=== PATIENT | female | born 1995 | race Caucasian/White ===

== ENCOUNTER 2016-05-15 18:56 | Emergency (ER) | payer MEDICAID ==
[2016-05-15 19:19] VITALS: BP 116/82
--- NOTE | 2016-05-15 19:39 | UCPHY ---
H & P Patient Type: New Chief Complaint Nursing Narrative: c/o dysuria X1 wk - STD exsposure 1wk ago - wants testing HPI/ROS: HPI CHIEF COMPLAINT: Dysuria, STI exposure HISTORY OF PRESENT ILLNESS: This patient very pleasant 21-year-old female presents urgent care stating that for 1 week she has had dysuria and had STI exposure would like STI testing. Patient tells me she would like to be treated for STI. She does not want a pelvic exam. She denies any abdominal pain fever flank pain vaginal discharge. She thinks she may have been exposed to chlamydia week ago unprotected sex. Past Medical History: No medical history Past Surgical History: No surgical history Social History: Denies daily use of drugs alcohol tobacco products Family History: Noncontributory ROS REVIEW OF SYSTEMS: A comprehensive 10 point review of systems is otherwise negative aside from elements mentioned in the history of present illness. Exam Constitutional triage nursing summary reviewed, vital signs reviewed, awake/ alert. Eyes normal conjunctivae and sclera, EOMI, PERRLA. HENT normal inspection, atraumatic, moist mucus membranes, no epistaxis, neck supple/ no meningismus, no raccoon eyes. Respiratory clear to auscultation bilaterally, normal breath sounds, no respiratory distress, no wheezing. Cardiovascular rate normal, regular rhythm, no murmur, no edema, distal pulses normal. Gastrointestinal soft, non-tender, no rebound, no guarding, normal bowel sounds, no distension, no pulsatile mass. Genitourinary no CVA tenderness. Musculoskeletal no midline vertebral tenderness, full range of motion, no calf swelling, no tenderness of extremities, no meningismus, good pulses, neurovascularly intact. Skin pink, warm, & dry, no rash, skin atraumatic. Neurologic awake, alert and oriented x 3, AAOx3, moves all 4 extremities equally, motor intact, sensory intact, CN II-XII intact, normal cerebellar, normal vision, normal speech. Psychiatric normal mood/affect. Heme/Lymph/Immune no lymphadenopathy. Differential Diagnosis: includes but is not limited to in a particular order, UTI, cystitis, gonorrhea, chlamydia STI exposure Medical Decision Making: plan for this patient is 250 mg IM Rocephin, 1000 mg p.o. Azithromycin, this is impaired treatment for gonorrhea and Chlamydia. Urine dirty catch be run urinalysis will be run.She understands to call in 24 hours for chlamydia and gonorrhea results. Source: Patient - Personal History LMP (Females 10-55): Now Current Tetanus Diphtheria and Acellular Pertussis (TDAP): Yes - Medical/Surgical History Other PMH: denies - Family History Significant Family History: No pertinent family hx Constitutional: Initial Vital Signs Temperature (C) 36.6 C 05/15/16 19:16 Heart Rate 95 05/15/16 19:16 Respiratory Rate 18 05/15/16 19:16 Blood Pressure 116/82 H 05/15/16 19:16 O2 Sat (%) 99 05/15/16 19:16 Allergies/Adverse Reactions: No Known Allergies Allergy (Unverified 05/15/16 19:16) Home Medications: Medication Instructions Recorded NK [No Known Home Meds] 05/15/16 Medical Decision Making - Data Points Laboratory Results: 05/15/16 05/15/16 19:45 19:45 Urine Color Pending Urine Appearance Pending Urine pH Pending Ur Specific [place] Pending Urine Protein Pending Urine Ketones Pending Urine Blood Pending Urine Nitrate Pending Urine Bilirubin Pending Urine Urobilinogen Pending Ur Leukocyte Esterase Pending Ur Culture Indicated? Pending Urine Glucose Pending N.gonorrhoeae RNA (TMA) Pending Departure - Departure Disposition: Home, Routine, Self-Care Condition: Good Instructions: Chlamydia (ED), Gonorrhea (ED) Additional Instructions: 1.You have been empirically treated for gonorrhea and chlamydia. 2. please call in 24 hours to see the results of your testing. 3.Return to the urgent care or emergency room if you have any worsening symptoms questions or concerns. Referrals: NONE *PRIMARY CARE P,. [Primary Care Provider] - As per Instructions - PQRS PQRS Measurement: n/a
[2016-05-15] MEDS ORDERED: cefTRIAXone 250 MG VIAL IM ONE (19:46)
[2016-05-15] MEDS ORDERED: AZITHROMYCIN 250 MG TAB PO ONE (19:46)
[2016-05-15 19:48] LABS: COLOR YELLOW; LEUKOCYTE ESTERASE,URINE NEGATIVE (NEGATIVE); NITRITE,URINE NEGATIVE (NEGATIVE)
[2016-05-15 20:46] LABS: MUCUS 1+ /lpf (NONE-1+)
[2016-05-15 21:20] VITALS: PULSE 87; RESP 20; TEMP 98.4; O2SAT 95
== END 2016-05-15 21:05 | disposition home or self-care (01) ==
LOC: CED 18:56
DX: R30.0 Dysuria (principal)
CPT/HCPCS: 81003-PO; 81015-PO; 96372-PO; 99214-PO; G0463-PO; J0696

== ENCOUNTER 2018-05-19 15:52 | Emergency (ER) | payer MEDICAID ==
[2018-05-19] MEDS ORDERED: KETOROLAC 30 MG/1 ML SDV IVP ONE (16:59)
[2018-05-19] MEDS ORDERED: NS 1,000 ML IV ONE (16:59)
--- NOTE | 2018-05-19 16:59 | EDPHY ---
H & P Stated Complaint: low back pain and prolonged period Time Seen by Provider: 05/19/18 16:50 HPI/ROS: HPI: This is a 23-year-old female who presents with Chief Complaint: low back pain and prolonged period Location: Low back, pelvic Quality: Pain, prolonged. Duration: 2 weeks Signs and Symptoms: no fever, no nausea, no vomiting, no hematemesis, no blood in stool, no abdominal bloating, no diarrhea, no back pain, no urinary symptoms , no vaginal discharge, no indigestion, no chest pain, no shortness of breath Timing: Acute Severity: Moderate Context: Patient is a student at [employer], originally from [place], reports that she does not take control pills, has menses every 28 days, reports 2 week history of heavy flow and prolonged menses that is abnormal for her. She reports that she has been changing her regular flow tampon every 1 hr for the last 2 days. She also complains of low back pain but denies dysuria, urinary frequency, vaginal bleeding. No recent sexual intercourse. Denies concern for sexually transmitted infections. Eating and drinking without difficulty. Modifying Factors: None Comment: ROS: A comprehensive 10 system review of systems is otherwise negative aside from elements mentioned in the history of present illness. MEDICAL/SURGICAL/SOCIAL HISTORY: Medical history: Generally healthy. Does not take any control. Surgical history: Denies Social history: Originally from [place]. Nonsmoker. Family history noncontributory. CONSTITUTIONAL: Well-developed and well-nourished young adult white female, awake and alert, no obvious distress HEENT: Atraumatic and normocephalic, PERRL, EOMI. Nares patent; no rhinorrhea; no nasal mucosal edema. Tympanic membranes clear. Oropharynx clear, no exudate and moist pink mucosa. Airway patent. No lymphadenopathy. No meningismus. Cardiovascular: Normal S1/S2, regular rate, regular rhythm, without murmur rub or gallop. PULMONARY/CHEST: Symmetrical and nontender. Clear to auscultation bilaterally. Good air movement. No accessory muscle usage. ABDOMEN: Soft, nondistended, nontender, no rebound, no guarding, no peritoneal signs, no masses or organomegaly. No CVAT. EXTREMITIES: 2/2 pulses, strength 5/5, no deformities, no clubbing, no cyanosis or edema. NEUROLOGICAL: no focal neuro deficits. GCS 15. SKIN: Warm and dry, no erythema. no rash. Good capillary refill. Source: Patient Exam Limitations: No limitations - Personal History LMP (Females 10-55): Now Current Tetanus/Diphtheria Vaccine: Yes Current Tetanus Diphtheria and Acellular Pertussis (TDAP): Yes - Medical/Surgical History Hx Asthma: No Hx Chronic Respiratory Disease: No Hx Diabetes: No Hx Cardiac Disease: No Hx Renal Disease: No Hx Cirrhosis: No Hx Alcoholism: No Hx HIV/AIDS: No Hx Splenectomy or Spleen Trauma: No Other PMH: denies - Social History Smoking Status: Never smoked Constitutional: Initial Vital Signs Temperature (C) 36.8 C 05/19/18 16:04 Heart Rate 100 05/19/18 16:04 Respiratory Rate 16 05/19/18 16:04 Blood Pressure 106/91 H 05/19/18 16:04 O2 Sat (%) 98 05/19/18 16:04 O2 Delivery Mode Room Air Allergies/Adverse Reactions: No Known Allergies Allergy (Unverified 05/15/16 19:16) Home Medications: Medication Instructions Recorded Tranexamic Acid [Lysteda] 1,300 mg PO TID 5 Days tablet 05/19/18 Medical Decision Making - Diagnostics Imaging Results: Imaging Impressions Pelvic/Renal Ultrasound 05/19/18 17:00 Impression: Normal ultrasound pelvis. Results called and discussed with Ivania Jacobs at 05/19/2018 17:51. ED Course/Re-evaluation: Vital signs reviewed and stable upon arrival. IV access, laboratory studies, urinalysis, pelvic ultrasound ordered 174: Pelvic ultrasound per radiologist Dr. Ross is completely unremarkable. 175: Labs reviewed. WBC 17K with left shift, H&H stable, no platelet dysfunction, No signs of ARNOL/elevated LFTs/electrolyte imbalance/. 1758: Still awaiting urine sample. 1847: Urinalysis shows trace ketones but no signs of infection. Due to menses lasting more than 10 days; will start TXA with OBGYN referral This patient was seen under the supervision of my secondary supervising physician. I evaluated care for this patient independently. Differential Diagnosis: Abdominal pain in a female including but not limited to ovarian cyst, pelvic inflammatory disease, ovarian torsion, urinary tract infection, and appendicitis. - Data Points Laboratory Results: Laboratory Results 05/19/18 17:05 05/19/18 17:05 05/19/18 05/19/18 05/19/18 18:10 17:05 17:05 WBC RBC Hgb Hct MCV MCH MCHC RDW Plt Count MPV Neut % (Auto) Lymph % (Auto) [place] % (Auto) Eos % (Auto) Baso % (Auto) Nucleat RBC Rel Count Absolute Neuts (auto) Absolute Lymphs (auto) Absolute Monos (auto) Absolute Eos (auto) Absolute Basos (auto) Absolute Nucleated RBC Immature Gran % Immature Gran # Sodium 138 mEq/L mEq/L (135-145) Potassium 3.8 mEq/L mEq/L (3.5-5.2) Chloride 101 mEq/L mEq/L (97-110) Carbon Dioxide 23 mEq/l mEq/l (22-31) Anion Gap 14 mEq/L mEq/L (6-14) BUN 14 mg/dL mg/dL (7-23) Creatinine 0.9 mg/dL mg/dL (0.6-1.0) Estimated GFR > 60 Glucose 104 mg/dL H mg/dL (70-100) Calcium 9.9 mg/dL mg/dL (8.5-10.4) Total Bilirubin 0.6 mg/dL mg/dL (0.1-1.4) Conjugated Bilirubin 0.4 mg/dL mg/dL (0.0-0.5) Unconjugated Bilirubin 0.2 mg/dL mg/dL (0.0-1.1) AST 17 IU/L IU/L (14-46) ALT 18 IU/L IU/L (9-52) Alkaline Phosphatase 126 IU/L IU/L (38-126) Total Protein 8.8 g/dL H g/dL (6.3-8.2) Albumin 4.6 g/dL g/dL (3.5-5.0) Beta HCG, Qual NEGATIVE Urine Color YELLOW Urine Appearance CLEAR Urine pH 5.0 (5.0-7.5) Ur Specific [place] 1.029 (1.002-1.030) Urine Protein NEGATIVE (NEGATIVE) Urine Ketones TRACE H (NEGATIVE) Urine Blood NEGATIVE (NEGATIVE) Urine Nitrate NEGATIVE (NEGATIVE) Urine Bilirubin NEGATIVE (NEGATIVE) Urine Urobilinogen NEGATIVE EU EU (0.2-1.0) Ur Leukocyte Esterase NEGATIVE (NEGATIVE) Urine Glucose NEGATIVE (NEGATIVE) 05/19/18 17:05 WBC 16.83 10^3/uL H 10^3/uL (3.80-9.50) RBC 5.30 10^6/uL 10^6/uL (4.18-5.33) Hgb 16.0 g/dL g/dL (12.6-16.3) Hct 48.1 % H % (38.0-47.0) MCV 90.8 fL fL (81.5-99.8) MCH 30.2 pg pg (27.9-34.1) MCHC 33.3 g/dL g/dL (32.4-36.7) RDW 12.1 % % (11.5-15.2) Plt Count 243 10^3/uL 10^3/uL (150-400) MPV 10.8 fL fL (8.7-11.7) Neut % (Auto) 78.8 % H % (39.3-74.2) Lymph % (Auto) 13.0 % L % (15.0-45.0) Vill[place] % (Auto) 7.0 % % (4.5-13.0) Eos % (Auto) 0.2 % L % (0.6-7.6) Baso % (Auto) 0.3 % % (0.3-1.7) Nucleat RBC Rel Count 0.0 % % (0.0-0.2) Absolute Neuts (auto) 13.27 10^3/uL H 10^3/uL (1.70-6.50) Absolute Lymphs (auto) 2.18 10^3/uL 10^3/uL (1.00-3.00) Absolute Monos (auto) 1.17 10^3/uL H 10^3/uL (0.30-0.80) Absolute Eos (auto) 0.04 10^3/uL 10^3/uL (0.03-0.40) Absolute Basos (auto) 0.05 10^3/uL 10^3/uL (0.02-0.10) Absolute Nucleated RBC 0.00 10^3/uL 10^3/uL (0-0.01) Immature Gran % 0.7 % % (0.0-1.1) Immature Gran # 0.12 10^3/uL H 10^3/uL (0.00-0.10) Sodium Potassium Chloride Carbon Dioxide Anion Gap BUN Creatinine Estimated GFR Glucose Calcium Total Bilirubin Conjugated Bilirubin Unconjugated Bilirubin AST ALT Alkaline Phosphatase Total Protein Albumin Beta HCG, Qual Urine Color Urine Appearance Urine pH Ur Specific [place] Urine Protein Urine Ketones Urine Blood Urine Nitrate Urine Bilirubin Urine Urobilinogen Ur Leukocyte Esterase Urine Glucose Medications Given: Discontinued Medications Sodium Chloride (Ns) 1,000 mls @ 0 mls/hr IV ONCE ONE; Wide Open PRN Reason: Protocol Stop: 05/19/18 17:00 Last Admin: 05/19/18 17:15 Dose: 1,000 mls Ketorolac Tromethamine (Toradol) 30 mg IVP EDNOW ONE Stop: 05/19/18 17:00 Last Admin: 05/19/18 17:15 Dose: 30 mg Departure - Departure Disposition: Home, Routine, Self-Care Clinical Impression: Menorrhagia with regular cycle Condition: Good Instructions: Dysfunctional Uterine Bleeding (ED) Additional Instructions: Consume a minimum of 8-10 glasses of water or electrolyte fluid replacement drinks that include Gatorade, Powerade, Pedialyte. Take TXA times daily x5 days. Follow up with OBGYN within the next 5-7 days. Referrals: Lilo Hall DO [Doctor of Osteopathy] - As per Instructions Prescriptions: Tranexamic Acid [Lysteda] 1,300 mg PO TID 5 Days tablet
[2018-05-19 17:22] LABS: PLATELET COUNT 243 10^3/uL (150-400)
[2018-05-19 19:00] VITALS: BP 110/78
== END 2018-05-19 19:01 | disposition home or self-care (01) ==
DX: N92.0 Excessive and frequent menstruation with regular cycle (principal); M54.5 Low back pain; E86.9 Volume depletion, unspecified
CPT/HCPCS: 96374; J1885